=== PATIENT | female | born 1950 ===

== ENCOUNTER 2018-12-19 10:03 | Emergency (ER) | payer OTHER ==
[~2018-12-19] VITALS: Ht 165.1 cm; Wt 71.7 kg
[2018-12-19] MEDS ORDERED: CARVEDILOL25 MG PO ×2 (10:29→10:30)
[2018-12-19] MEDS ORDERED: SIMVASTATIN20 MG PO (10:29)
[2018-12-19] MEDS ORDERED: LASIX20 MG PO (10:29)
[2018-12-19] MEDS ORDERED: PROBIOTIC1 EAC3 PO (10:30)
[2018-12-19] MEDS ORDERED: AMBIEN5 MG PO (10:30)
[2018-12-19] MEDS ORDERED: OMEPRAZOLE20 MG PO (10:30)
[2018-12-19] MEDS ORDERED: CITALOPRAM10 MG/5 ML PO (10:30)
[2018-12-19] MEDS ORDERED: LOSARTAN POTAS100 MG PO (10:30)
== END 2018-12-19 12:53 | disposition home or self-care (01) ==
LOC: ER 10:03
DX: M17.11 Unilateral primary osteoarthritis, right knee (principal); M25.551 Pain in right hip; M25.561 Pain in right knee; M54.5 Low back pain